=== PATIENT | female | born 1990 | race Hispanic/Latino ===

== ENCOUNTER 2017-12-06 18:50 | Emergency (ER) | payer SELFPAY ==
[2017-12-06] MEDS ORDERED: TETANUS & DIPHTHERIA TOX,ADULT 0.5 ML VIAL ONE (19:49)
[2017-12-06] MEDS ORDERED: DERMABOND SKIN ADHESIVE TOP ONE (19:49)
--- NOTE | 2017-12-06 20:19 | EDPHYS ---
Physician Documentation [facility] Name: Chasidy Maharaj Age: 27 yrs Sex: Female : 1990 Arrival Date: 12/06/2017 Time: 18:56 Bed 19 Private MD: ED Physician Philippe Sanz HPI: 12/06 20:03 This 27 yrs old Female presents to ER via Ambulatory with complaints of snw Laceration To Hand. 20:03 The patient has a laceration related to: cooking, from a knife, occurred at home, and snw The type of wound is a puncture. The injury was accidental. The laceration(s) is(are) located on the palm of left hand. Onset: The symptoms/episode began/occurred suddenly, just prior to arrival. Associated signs and symptoms: The patient has no apparent associated signs or symptoms. The patient has not experienced similar symptoms in the past. It is unknown whether or not the patient has recently seen a physician. Pt was trying to take pit out of avocado and knife slipped and stabbed left palm. 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 Last tetanus immunization: unknown. - Social history:: Smoking status: Patient uses tobacco products, denies chronic smoking, but will smoke occasionally. - Ebola Screening: : No symptoms or risks identified at this time. ROS: 20:02 Constitutional: Negative for fever, chills, and weight loss, Eyes: Negative for injury, snw pain, redness, and discharge, ENT: Negative for injury, pain, and discharge, Neck: Negative for injury, pain, and swelling, Cardiovascular: Negative for chest pain, palpitations, and edema, Respiratory: Negative for shortness of breath, cough, wheezing, and pleuritic chest pain, Abdomen/GI: Negative for abdominal pain, nausea, vomiting, diarrhea, and constipation, Back: Negative for injury and pain, : Negative for injury, bleeding, discharge, and swelling, MS/Extremity: Negative for injury and deformity, Skin: Negative for rash and discoloration, + puncture wound/stab to left palm Neuro: Negative for headache, weakness, numbness, tingling, and seizure, Psych: Negative for depression, anxiety, suicide ideation, homicidal ideation, and hallucinations. Exam: 19:59 Constitutional: This is a well developed, well nourished patient who is awake, alert, snw and in no acute distress. Head/Face: Normocephalic, atraumatic. Eyes: Pupils equal round and reactive to light, extra-ocular motions intact. Lids and lashes normal. Conjunctiva and sclera are non-icteric and not injected. Cornea within normal limits. Periorbital areas with no swelling, redness, or edema. ENT: Nares patent. No nasal discharge, no septal abnormalities noted. Tympanic membranes are normal and external auditory canals are clear. Oropharynx with no redness, swelling, or masses, exudates, or evidence of obstruction, uvula midline. Mucous membranes moist. Neck: Trachea midline, no thyromegaly or masses palpated, and no cervical lymphadenopathy. Supple, full range of motion without nuchal rigidity, or vertebral point tenderness. No Meningismus. Chest/axilla: Normal chest wall appearance and motion. Nontender with no deformity. No lesions are appreciated. Cardiovascular: Regular rate and rhythm with a normal S1 and S2. No gallops, murmurs, or rubs. Normal PMI, no JVD. No pulse deficits. Respiratory: Lungs have equal breath sounds bilaterally, clear to auscultation and percussion. No rales, rhonchi or wheezes noted. No increased work of breathing, no retractions or nasal flaring. Abdomen/GI: Soft, non-tender, with normal bowel sounds. No distension or tympany. No guarding or rebound. No evidence of tenderness throughout. Back: No spinal tenderness. No costovertebral tenderness. Full range of motion. Skin: Warm, dry with normal turgor. Normal color with no rashes, no lesions, and no evidence of cellulitis. puncture wound to left palm, no bleeding, wound edges well approximated MS/ Extremity: Pulses equal, no cyanosis. Neurovascular intact. Full, normal range of motion. Neuro: Awake and alert, GCS 15, oriented to person, place, time, and situation. Cranial nerves II-XII grossly intact. Motor strength 5/5 in all extremities. Sensory grossly intact. Cerebellar exam normal. Normal gait. Psych: Awake, alert, with orientation to person, place and time. Behavior, mood, and affect are within normal limits. Vital Signs: 19:09 BP 129 / 90; Pulse 97; Resp 18; Pulse Ox 98% ; Weight 88.45 kg; Height 5 ft. 2 in. sv (157.48 cm); 20:35 Pulse 91; Resp 17 S; Pulse Ox 98% on R/A; jd3 19:09 Body Mass Index 35.67 (88.45 kg, 157.48 cm) sv Laceration: 20:17 Wound Repair of .5cm ( 0.2in ) subcutaneous laceration to palm of left hand. Linear snw shaped.. Distal neuro/vascular/tendon intact. Anesthesia: Local anesthetic administered with 0 mls of 1% lidocaine. Wound prep: Moderate cleansing with hibiclenz. Skin closed with thin layer Adhesive skin closure using Dermabond. Dressed with non-adherent dressing. Patient tolerated well. MDM: 19:18 Patient medically screened. snw 20:19 Data reviewed: vital signs, nurses notes. Data interpreted: Pulse oximetry: on room air snw is 98 %. Interpretation: normal. Counseling: I had a detailed discussion with the patient and/or guardian regarding: the historical points, exam findings, and any diagnostic results supporting the discharge/admit diagnosis, the need for outpatient follow up, to return to the emergency department if symptoms worsen or persist or if there are any questions or concerns that arise at home. Special discussion: I discussed in detail with the patient the higher chance of wound infection based on his presenting history. Based on the history and exam findings, there is no indication for further emergent testing or inpatient evaluation. I discussed with the patient/guardian the need to see the primary care provider for further evaluation of the symptoms. 12/06 19:37 Order name: Hand Left 2 View XRAY snw 12/06 19:38 Order name: Wound Care; Complete Time: 19:49 snw 12/06 19:38 Order name: Dermabond; Complete Time: 19:49 snw 12/06 19:38 Order name: Wound dressing; Complete Time: 20:33 snw Administered Medications: 19:49 Drug: Tetanus-Diphtheria Toxoid Adult 0.5 ml {[employer]: [employer]. Exp: jd3 11/19/2019. Lot #: [id number]. } Route: IM; Site: right deltoid; 20:28 Follow up: Response: No adverse reaction jd3 19:50 Drug: Hibiclens 4 % 1 application Route: Topical; Site: left hand; jd3 20:28 Follow up: Response: No adverse reaction jd3 Disposition: 12/06/17 20:18 Discharged to Home. Impression: Puncture wound without foreign body of left hand. - Condition is Stable. - Discharge Instructions: Tissue Adhesive Wound Care, Hypertension, Puncture Wound, VIS, Tetanus, Diphtheria (Td) - CDC. - Prescriptions for Diclofenac Sodium 75 mg Oral Tablet Sustained Release - take 1 tablet by ORAL route 2 times per day; 30 tablet. - Medication Reconciliation Form, Thank You Letter, Antibiotic Education, Prescription Opioid Use form. - Follow up: Private Physician; When: 1 week; Reason: Recheck today's complaints, Continuance of care, Re-evaluation by your physician. Follow up: Emergency Department; When: As needed; Reason: Worsening of condition. Signatures: Dispatcher [employer] Glenys Caldwell, HATTIE RN Katrin Spicer, MACHINE PACK ASSEMBLER-C MACHINE PACK ASSEMBLER-Csnw Santino Coles RN RN jd3 Corrections: (The following items were deleted from the chart) 20:35 20:18 12/06/2017 20:18 Discharged to Home. Impression: Puncture wound without foreign jd3 body of left hand. Condition is Stable. Discharge Instructions: Puncture Wound, VIS, Tetanus, Diphtheria (Td) - CDC, Hypertension. Prescriptions for Diclofenac Sodium 75 mg Oral Tablet Sustained Release - take 1 tablet by ORAL route 2 times per day; 30 tablet. and Forms are Medication Reconciliation Form, Thank You Letter, Antibiotic Education, Prescription Opioid Use. Follow up: Private Physician; When: 1 week; Reason: Recheck today's complaints, Continuance of care, Re-evaluation by your physician. Follow up: Emergency Department; When: As needed; Reason: Worsening of condition. snw
--- NOTE | 2017-12-06 20:19 | ER ---
Nurse's Notes [facility] Name: Chasidy Maharaj Age: 27 yrs Sex: Female : 1990 Arrival Date: 12/06/2017 Time: 18:56 Bed 19 Private MD: Diagnosis: Puncture wound without foreign body of left hand Presentation: 12/06 19:08 Presenting complaint: Patient states: left hand laceration occurred today. Transition sv of care: patient was not received from another setting of care. Onset of symptoms was December 06, 2017. Care prior to arrival: None. 19:08 Method Of Arrival: Ambulatory sv 19:08 Acuity: BIB 4 sv 19:23 Risk Assessment: Do you want to hurt yourself or someone else? Patient reports no jd3 desire to harm self or others. Initial Sepsis Screen: Does the patient meet any 2 criteria? No. Patient's initial sepsis screen is negative. Does the patient have a suspected source of infection? No. Patient's initial sepsis screen is negative. 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 Last tetanus immunization: unknown. - Social history:: Smoking status: Patient uses tobacco products, denies chronic smoking, but will smoke occasionally. - Ebola Screening: : No symptoms or risks identified at this time. Screenin:21 Abuse screen: Denies threats or abuse. Nutritional screening: No deficits noted. jd3 Tuberculosis screening: No symptoms or risk factors identified. Fall Risk Ambulatory Aid- None/Bed Rest/Nurse Assist (0 pts). Gait- Normal/Bed Rest/Wheelchair (0 pts) Mental Status- Oriented to own ability (0 pts). Total [place] Fall Scale indicates No Risk (0-24 pts). Assessment: 19:15 General: Appears in no apparent distress. uncomfortable, Behavior is calm, cooperative, jd3 appropriate for age. Pain: Complains of pain in palm of left hand Quality of pain is described as aching, tender, numb. Neuro: Level of Consciousness is awake, alert, obeys commands, Oriented to person, place, time, situation, Appropriate for age. Cardiovascular: Denies shortness of breath, Capillary refill < 3 seconds Patient's skin is warm and dry. Respiratory: Airway is patent Respiratory effort is even, unlabored, Respiratory pattern is regular, symmetrical, Denies shortness of breath. GI: No signs and/or symptoms were reported involving the gastrointestinal system. : No signs and/or symptoms were reported regarding the genitourinary system. EENT: No signs and/or symptoms were reported regarding the EENT system. Derm: Skin is intact, Skin is dry, Skin is normal, Skin temperature is warm. Musculoskeletal: Circulation, motion, and sensation intact. Range of motion: intact in all extremities. Injury Description: Puncture sustained to palm of left hand is small puncture noted about 1 cm in length with small to no amount of bleeding. bruising noted to the dorsal side of left hand. 20:34 Reassessment: Patient appears in no apparent distress at this time. Patient and/or jd3 family updated on plan of care and expected duration. Pain level reassessed. Patient is alert, oriented x 3, equal unlabored respirations, skin warm/dry/pink. reported understanding of discharge instructions. Vital Signs: 19:09 BP 129 / 90; Pulse 97; Resp 18; Pulse Ox 98% ; Weight 88.45 kg; Height 5 ft. 2 in. sv (157.48 cm); 20:35 Pulse 91; Resp 17 S; Pulse Ox 98% on R/A; jd3 19:09 Body Mass Index 35.67 (88.45 kg, 157.48 cm) sv ED Course: 18:56 Patient arrived in ED. as 19:01 Katrin Spicer FNP-C is PSYCHIATRICP. snw 19:02 Philippe Sanz MD is Attending Physician. snw 19:08 Triage completed. sv 19:09 Arm band placed on. sv 19:12 Santino Coles, HATTIE is Primary Nurse. jd3 19:22 Patient has correct armband on for positive identification. Bed in low position. Call jd3 light in reach. Side rails up X 1. Adult w/ patient. 19:59 Hand Left 2 View XRAY In Process Unspecified. EDMS 20:33 No provider procedures requiring assistance completed. Patient did not have IV access jd3 during this emergency room visit. Administered Medications: 19:49 Drug: Tetanus-Diphtheria Toxoid Adult 0.5 ml {Enamel Burner: [employer]. Exp: jd3 11/19/2019. Lot #: [id number]. } Route: IM; Site: right deltoid; 20:28 Follow up: Response: No adverse reaction jd3 19:50 Drug: Hibiclens 4 % 1 application Route: Topical; Site: left hand; jd3 20:28 Follow up: Response: No adverse reaction jd3 Outcome: 20:18 Discharge ordered by MD. linda 20:33 Discharged to home jd3 20:33 Condition: stable 20:33 Discharge instructions given to patient, family, Instructed on discharge instructions, follow up and referral plans. medication usage, Demonstrated understanding of instructions, follow-up care, medications. 20:35 Patient left the ED. jd3 Signatures: Dispatcher [employer] Glenys Caldwell RN RN sv Therrien, Shelly, WOOD CAULKER-C WOOD CAULKER-Csnw Lashae Enriquez Jonathon, RN RN jd3 Corrections: (The following items were deleted from the chart) 19:10 19:09 LMP 11/18/2017 gisela higgins
--- NOTE | 2017-12-06 20:38 | RAD REPORT ---
EXAM DESCRIPTION: RAD - Hand Left 2 View - 12/06/2017 7:59 pm CLINICAL HISTORY: PAIN Laceration. COMPARISON: No comparisons FINDINGS: No fracture, dislocation or radiopaque foreign body.
== END 2017-12-06 20:35 | disposition home or self-care (01) ==
LOC: ER 18:50
PROC: 0JQK0ZZ Repair Left Hand Subcutaneous Tissue and Fascia, Open Approach (ICD-10-PCS; principal; 2017-12-06)
DX: S61.432A Puncture wound without foreign body of left hand, initial encounter (principal); W26.0XXA Contact with knife, initial encounter; Y93.G3 Activity, cooking and baking; Y92.000 Kitchen of unspecified non-institutional (private) residence as the place of occurrence of the external cause; Z23 Encounter for immunization; Z72.0 Tobacco use
CPT/HCPCS: 90714; 99283